=== PATIENT | female | born 1985 | race Caucasian/White ===

== ENCOUNTER 2016-09-25 05:36 | Inpatient (IN) | payer MEDICAID ==
[~2016-09-25] VITALS: Ht 154.9 cm; Wt 58.5 kg
[2016-09-25 06:05] VITALS: BP 122/81; Ht 154.9 cm; Wt 58.5 kg
[2016-09-25 06:28] LABS: HEMOGLOBIN 11.6 g/dL (12-16); MCH 30.9 pg (26.0-34.0); MCHC 34.1 g/dL (31.0-37.0); MCV 90.7 fL (80.0-100.0); MEAN PLATELET VOLUME 11.9 fL (7.4-10.4); RBC 3.75 10x6/uL (4.00-5.40); RDW 13.4 % (11.5-14.5); WBC 12.3 10x3/uL (4.8-10.8)
[2016-09-25 07:43] LABS: APPEARANCE HAZY (CLEAR); BILIRUBIN NEGATIVE (NEGATIVE); COLOR YELLOW (YELLOW); GLUCOSE NEGATIVE (NEGATIVE); KETONE NEGATIVE (NEGATIVE); LEUKOCYTE ESTERASE 2+ (NEGATIVE); NITRITE NEGATIVE (NEGATIVE); PROTEIN TRACE mg/dL (NEGATIVE); UROBILINOGEN NORMAL (NORMAL)
[2016-09-25 07:44] LABS: BACTERIA MODERATE /hpf (NONE SEEN); EPITHELIAL CELLS 0-5 /hpf (0-5); MUCUS <1+ /lpf (NONE SEEN); RED CELLS - URINE OCC /hpf (0-5)
[2016-09-25 19:24] VITALS: BP 128/89
--- NOTE | 2016-09-25 19:30 | NUR ---
PT RECEIVED TO MY CARE IN L&D 1257. PT RESTING IN BED IN SEMI-FOWLERS POSITION, TALKING ON PHONE, IN NO ACUTE DISTRESS. PT IS A 30YO G6 NOW P4 WITH OF VIABLE MALE TODAY @ 1401, @ 39.0 WKS GESTATION. PT WITH NO LACERATIONS OR EPIS. AAOX3. HR REGULAR. LUNGS CTAB. ABDOMEN SOFT AND NON TENDER. BS ACTIVE TIMES 4. FUNDUS FIRM AND ML @ U/-1. LOCHIA RUBRA SMALL. PERINIUM APPEARS TO BE INTACT. PT STATES SHE HAS PASSED GAS SINCE BUT HAS NOT HAD BM. PT DENIES DIFFICULTY VOIDING. NO SWELLING NOTED TO UPPER OR LOWER EXTREMITIES BILATERALLY. [address] TO RIGHT HAND. FLUSHED WITH 5 CC NS AT THIS TIME WITHOUT DIFFICULTY, NO REDNESS OR EDEMA NOTED AT SITE. EPIDURAL CATH REMAINS IN PLACE FOR PP BTL IN AM. DRESSING C/D/I. CATH IS CAPPED OFF. PT C/O PAIN, RATES 6/10 AT THIS TIME. REQUESTS MEDICATION. 1 TAB IBUPROFEN AND 1 TAB NORCO 5 PROVIDED AT THIS TIME FOR C/O PAIN. POC DISCUSSED WITH PT AND SO AT BS. QUESTIONS ANSWERED. PT DENIES ANY FURTHER NEEDS AT THIS TIME. PT TOLERATING REGULAR DIET WITHOUT DIFFICULTY. BED IN LOW POSITION, SIDE RAILS UP TIMES 2, CALL LIGHT AND PHONE IN REACH. SO REMAINS AT PT BS FOR SUPPORT AND ASSISTANCE. WILL CONT TO MONITOR PT STATUS.
--- NOTE | 2016-09-25 20:43 | NUR ---
RN TO PT BS FOR ROUNDS. PT RESTING IN BED IN SEMI-FOWLERS POSITION IN NO ACUTE DISTRESS. PT DENIES ANY NEEDS AT THIS TIME. BED IN LOW POSITION, SIDE RAILS UP TIMES 2, CALL LIGHT AND PHONE IN REACH. SO REMAINS AT PT BS FOR SUPPORT AND ASSISTANCE. WILL CONT TO MONITOR PT STATUS.
--- NOTE | 2016-09-25 22:58 | NUR ---
RN TO PT BS FOR ROUNDS. PT RESTING IN BED IN LEFT LATERAL POSITION, WITH EYES CLOSED, IN NO ACTUE DISTRESS. RESPIRATIONS EVEN AND UNLABORED. BED IN LOW POSITION, SIDE RAILS UP TIMES 2, CALL LIGHT AND PHONE IN REACH. SO AT PT BS HOLDING , DENIES ANY NEEDS. BED IN LOW POSITION, SIDE RAILS UP TIMES 2, CALL LIGHT AND PHONE IN REACH. WILL CONT TO MONITOR PT STATUS.
--- NOTE | 2016-09-25 23:45 | NUR ---
RN CALLED TO PT BS WITH C/O PAIN, RATES 7/10, REQUESTS MEDICATION. PT PROVIDED WITH 1 TAB NORCO 10 AT THIS TIME. PT DENIES ANY FURTHER NEEDS. PT REMINDED TO STAY NPO AFTER MIDNIGHT, VERBALIZED UNDERSTANDING. BED IN LOW POSITION, SIDE RAILS UP TIMES 2, CALL LIGHT AND PHONE IN REACH. SO REMAINS AT PT BS FOR SUPPORT AND ASSISTANCE. INFANT REMAINS AT PT BS FOR COUPLET CARE. WILL CONT TO MONITOR PT STATUS.
[2016-09-26] VITALS (8 sets, daily range): BP systolic 112–148; BP diastolic 76–89
--- NOTE | 2016-09-26 01:41 | NUR ---
RN TO PT BS FOR ROUNDS. PT RESTING IN BED IN SEMI-FOWLERS POSITION, HOLDING , IN NO ACUTE DISTRESS. PT DENIES ANY FURTHER NEEDS AT THIS TIME. BED IN LOW POSITION, SIDE RAILS UP TIMES 2, CALL LIGHT AND PHONE IN REACH. SO REMAINS AT PT BS FOR SUPPORT AND ASSISTANCE. INFANT REMAINS AT PT BS FOR COUPLET CARE. WILL CONT TO MONITOR PT STATUS.
--- NOTE | 2016-09-26 03:30 | NUR ---
RN TO PT BS FOR ROUNDS. PT RESTING IN BED IN RIGHT LATERAL POSITION, WITH EYES CLOSED, IN NO ACUTE DISTRESS. RESPIRATIONS EVEN AND UNLABORED. BED IN LOW POSITION, SIDE RAILS UP TIMES 2, CALL LIGHT AND PHONE IN REACH. SO REMAINS AT PT BS FOR SUPPORT AND ASSISTANCE. WILL CONT TO MONITOR PT STATUS.
--- NOTE | 2016-09-26 05:12 | NUR ---
RN TO PT BS. CHLORAHEXIDINE WIPES PROVIDED TO PT TO USE PRIOR TO SURGERY. INSTRUCTIONS GIVEN TO PT. PT VERBALIZED UNDERSTANDING. POC DISCUSSED WITH PT AND SO. PT STATES SHE IS IN PAIN, RATES 6/10, IN HER BACK. STATES SHE FEELS LIKE SHE CAN WAIT UNTIL AFTER PROCEDURE. BED REMAINS IN LOW POSITION, SIDE RAILS UP TIMES 2, CALL LIGHT AND PHONE IN REACH. SO REMAINS AT PT BS FOR SUPPORT AND ASSISTANCE. WILL CONT TO MONITOR PT STATUS.
[2016-09-26 05:56] LABS: BASOPHILS 0.2 % (0.0-2.0); HEMATOCRIT 33.5 % (36.0-48.0); IMMATURE GRANULOCYTES 0.3 % (0-5); LYMPHOCYTES 30.2 % (15-50); MCH 29.9 pg (26.0-34.0); MCHC 32.8 g/dL (31.0-37.0); MEAN PLATELET VOLUME 11.5 fL (7.4-10.4); MONOCYTES 4.9 % (2-11); NEUTROPHILS 63.4 % (40-80); PLATELET COUNT 162 10x3/uL (130-400); RBC 3.68 10x6/uL (4.00-5.40); RDW 13.5 % (11.5-14.5); WBC 12.2 10x3/uL (4.8-10.8)
[2016-09-26 06:15] LABS: RAPID PLASMA REAGIN Non Reactive (Non Reactive)
--- NOTE | 2016-09-26 06:16 | NUR ---
RN TO PT BS. PT SITTING IN BED IN HOLDING INFANT IN NO ACUTE DISTRESS. PT STATES SHE HAS NOT BEEN UP YET TO USE CHLORAHEXIDINE WIPES. CLEAN GOWN GIVEN TO PT AND PT ASKED TO GET UP TO USE WIPES. WILL RETURN TO ROOM TO COMPLETE PREOP.
--- NOTE | 2016-09-26 06:38 | NUR ---
RN TO PT BS. PT AMBULATING FROM BR. PT ASSISTED WITH PT GOWN AND HELPED INTO BED. VS TAKEN, WNL. PRE-OP MEDS GIVEN. 18G IV TO RIGHT HAND FLUSHED WITH 5 CC NS WITHOUT DIFFICULTY, NO REDNESS OR EDEMA NOTED TO SITE. LR HUNG TO INFUSE VIA PUMP AT 250ML/HR. SCD'S PLACED TO LOWER EXTREMITIES BILATERALLY. POC DISCUSSED WITH PT AND SO AT BS. QUESTIONS ANSWERED. SO REMAINS AT PT BS FOR SUPPORT AND ASSISTANCE. REMAINS AT PT BS FOR COUPLET CARE. WILL CONT TO MONITOR PT STATUS.
--- NOTE | 2016-09-26 07:02 | NUR ---
PT OFF UNIT TO MAIN OR FOR PPBTL.
--- NOTE | 2016-09-26 08:10 | NUR ---
DR HARTMAN AWARE THAT THE PATIENT HAD AN EPIDURAL REMOVED AFTER HER CASE AND DOES NOT HAVE A FAJARDO CATHETER.
--- NOTE | 2016-09-26 08:45 | NUR ---
PT WAS RECEIVED FROM RECOVERY POST TUBAL LIGATION. PT IS AWAKE AND ALERT. PT TRANSFERRED FROM STRETCHER TO BED. SHE IS ABLE TO MOVE HER LOWER EXTREMITIES. VSS. HER IS AT BEDSIDE. LUNGS- CLEAR. HEART- RRR, ABD- SOFT WITH SOME TENDERNESS NOTED. DRESSING CLEAN DRY AND INTACT OVER UMBILICUS. FUNDUS FIRM AT U 2. SMALL LOCIA RUBRA ON GILMAR PAD. EXT- WITH SCD'S NOTED. PT REQUESTED THAT THEY BE REMOVED. BED IS LOW, SIDE RAILS UP X 2 AND CALL LIGHT IN REACH.
--- NOTE | 2016-09-26 09:40 | NUR ---
PT IS RESTING IN BED. SHE OFFERS NO COMPLAINTS. SHE IS GETTING UP TO BATHROOM TO VOID. AT BEDSIDE.
--- NOTE | 2016-09-26 10:06 | NUR ---
PT C/O PAIN AT INCISION. REQUEST PAIN MEDICATION. NORCO 5/325 GIVEN ORALLY. STATES PAIN IS A 3/10
--- NOTE | 2016-09-26 11:00 | NUR ---
PT IS LYING IN BED. STATES THE PAIN MED HELPED. HER PAIN IS NOW A 0
--- NOTE | 2016-09-26 12:15 | NUR ---
PT IS EATING LUNCH. OFFERS NO COMPLAINTS. GETTING UP TO BATHROOM. SMALL LOCIA RUBRA STATED BY PT.
[2016-09-26] MEDS ORDERED: IBUPROFEN600 MG PO ×2 (13:20→16:06)
[2016-09-26] MEDS ORDERED: HYDROCODON-ACE1 EAC7 PO (13:21)
--- NOTE | 2016-09-26 13:45 | NUR ---
PTS DISCHARGE INSTRUCTIONS DISCUSSED WITH PT. SHE WAS GIVEN HANDOUTS, PRESCRIPTIONS AND FU APPT CARD. PT WAS INSTRUCTED TO CALL US IF SHE HAS ANY PROBLEMS OR QUESTIONS.
--- NOTE | 2016-09-26 16:45 | NUR ---
fundus u2/firm. small lochia noted on pad. no requests.
--- NOTE | 2016-10-09 11:44 | OP ---
PATIENT NAME: CODI SAEZ MEDICAL RECORD: [id number] :83 LOCATION:[id number] ADMISSION DATE:09/25/16 SURGEON: FRANCISCO KEEN MD DATE OF OPERATION: 09/26/2016 PREOPERATIVE DIAGNOSIS: Multiparity, the patient desires permanent sterility. POSTOPERATIVE DIAGNOSIS: Multiparity, the patient desires permanent sterility. PROCEDURE: left partial salpingectomy via modified Lewis. SURGEON: Francisco Keen MD. ANESTHESIA: Epidural with IV sedation. ESTIMATED BLOOD LOSS: Minimal. INTRAVENOUS FLUIDS: Per anesthesia record. SPECIMENS: Portion of left tubal segment. FINDINGS: Grossly normal appearing; however, short left fallopian tube, normal appearing left ovary, right fallopian tube with very obvious defect from previous partial salpingectomy due to right ectopic . The right tube did not have a visible fimbriated end and a shortened occluded appearing stump. COMPLICATIONS: None apparent. PROCEDURE IN DETAIL: The patient was taken to the operating room where epidural anesthesia with IV sedation was found to be adequate. At this point, an approximately 3 cm incision was made under the umbilicus. This was extended downward through the underlying subcutaneous tissue to the level of the fascia. The fascia was then grasped with Sarah clamps times 2, tented upward and entered sharply using the Metzenbaum scissors, the fascial incision was then extended bilaterally using the Metzenbaum scissors. The peritoneal incision was then extended via stretching. [employer] retractors were then used to evaluate the bilateral adnexa. The left tube was identified and grasped with Gary clamp, tented upward and tied with a 0 plain gut times 2 and a portion of the fallopian tube was then removed using the Metzenbaum scissors. Good hemostasis was noted from the transected fallopian tube. The tube was then returned to the pelvis. Survey was then performed on the right where the nonviable right fallopian tube was identified. Good hemostasis was noted. Counts were correct times 2. The fascial incision was repaired with 0 Vicryl in a running locked fashion and the skin repaired with a running subcutaneous stitch using 3-0 Monocryl and Dermabond. The patient tolerated the procedure well, transferred to postanesthesia recovery stable without incident. TRANSINT:[id number] Voice Confirmation ID: [id number] DOCUMENT ID: [id number] at 1142 CC: [id number] DICTATION DATE: 09/26/16 0816 CHECK GRADER: 09/26/16 1528 ADM IN [place] [id number] [place] [address]
== END 2016-09-26 13:45 | disposition home or self-care (01) | DRG 767 ==
LOC: D.LD 05:36
PROVIDERS: ADMIT Obstetrics & Gynecology
PROC: 10E0XZZ Delivery of Products of Conception, External Approach (ICD-10-PCS; principal; 2016-09-25)
PROC: 10907ZC Drainage of Amniotic Fluid, Therapeutic from Products of Conception, Via Natural or Artificial Opening (ICD-10-PCS; 2016-09-25)
PROC: 0UB60ZZ Excision of Left Fallopian Tube, Open Approach (ICD-10-PCS; 2016-09-26)
DX: O99.344 Other mental disorders complicating childbirth (principal); F41.9 Anxiety disorder, unspecified; Z3A.39 39 weeks gestation of pregnancy; Z37.0 Single live birth; R87.622 Low grade squamous intraepithelial lesion on cytologic smear of vagina (LGSIL); O99.334 Smoking (tobacco) complicating childbirth; Z30.2 Encounter for sterilization; Z30.09 Encounter for other general counseling and advice on contraception